=== PATIENT | female | born 1945 | race Caucasian/White ===

== ENCOUNTER 2017-05-16 21:16 | Observation (INO) | payer OTHER ==
[~2017-05-16] VITALS: Ht 162.6 cm; Wt 63.5 kg
--- NOTE | ~2017-05-16 | CN ---
Consultation Report [facility] [address] [place]. [address] NAME: THAO MOSHER : 49 STATUS : ADM Matthew PAT#: [id number] AGE: 71 ADM/REG DATE : 05/16/17 MR#: [id number] REPORT SERV DATE: 05/17/17 DICTATED BY: DIO MORROW DATE: 05/17/17 REPORT STATUS : Draft TRANSCRIBED BY: MODL DATE: 05/17/17 DATE OF CONSULTATION: 05/17/2017 CHIEF COMPLAINT: Shortness of breath in a patient with end-stage COPD. HISTORY OF PRESENT ILLNESS: Ms. Thao Mosher is a 71-year-old white female with a past medical history significant for very severe COPD with chronic hypoxemic respiratory failure, chronic hypercapnic respiratory failure with numerous recent presentations for exacerbations of her COPD, who presents to [facility]'s emergency room with complaints of difficulty breathing. It should be noted that Ms. Mosher was hospitalized three times already this year for exacerbations of COPD. Ms. Mosher required supplemental oxygen at 6 L continuous. She is on a pulmonary regimen of albuterol, Symbicort, and Spiriva. She is currently completing a prolonged prednisone taper. The patient is currently chewing tobacco. That being said, previous to this time, she smoked approximately two packs a day for a period of 30 years. She largely denies symptomatology related to obstructive sleep apnea. She describes her exercise tolerance as essentially nonexistent, stating that any movement causes her to be very short of breath. Again, Ms. Mosher has had three hospitalizations for her severe end-stage COPD already this year and most recently was about a week ago at our [facility] facility. She was seen by Dr. Campos during this time. She has been seen by Dr. Rachelle Maravilla in the past. That being said, she has not had an opportunity to establish care in the outpatient clinic. She did eventually improve and was discharged from the [facility] with the initial idea to pursue some sort of rehab. That being said, given her poor exercise tolerance, the patient felt that she would be unable to participate in any rehab whatsoever, and as such, transitioned home. There, she has had a declining course with worsening shortness of breath. This became progressively worse and culminated in her presentation to [facility]'s emergency room. Upon arrival, she was normotensive and afebrile. Initial blood work revealed white blood cell count of 11,700 in the setting of continuing steroids. Her renal function was intact. She did undergo arterial blood gas sampling, which demonstrated pH of 7.43, PaCO2 of 48, PaO2 of 61, and a bicarb of 30.9. She was admitted and given steroids and breathing treatments. There was a discussion about having palliative care comes to see her while she was inpatient. Ultimately, the patient has requested to transition home with hospice care. As she has chronic hypoxemic-hypercapnic respiratory failure and seemingly breathes much better with respiratory support at hour of sleep, Pulmonary has been consulted for assistance in providing her with noninvasive positive pressure ventilation at hour of sleep. Currently, Ms. Mosher does demonstrate labored breathing. She does have significant dyspnea even at rest. She is not producing any purulent sputum today. She does have some complaints of wheezing. The patient does have documented pulmonary function testing that suggests very severe COPD. Consultation Report [address] [address] NAME: THAO MOSHER : 49 STATUS : ADM Matthew PAT#: [id number] AGE: 71 ADM/REG DATE : 05/16/17 MR#: [id number] REPORT SERV DATE: 05/17/17 DICTATED BY: DIO MORROW DATE: 05/17/17 REPORT STATUS : Draft TRANSCRIBED BY: DOYLE DATE: 05/17/17 She currently denies any murmurs, angina, or palpitations. In regard to constitutional symptoms, she currently denies fever, chills, nausea, vomiting, chest pain, or abdominal pain. PAST MEDICAL HISTORY: 1. Severe end-stage COPD. 2. Chronic hypoxemic respiratory failure. 3. Chronic hypercapnic respiratory failure. 4. Hypertension. 5. Dyslipidemia. 6. Anxiety and depression. PAST SURGICAL HISTORY: The patient had a hysterectomy. FAMILY HISTORY: The patient denies family history of lung disease. SOCIAL HISTORY: The patient has a daughter, who is involved in her healthcare. She currently resides at home prior to this hospitalization. TOBACCO/ALCOHOL: The patient has smoked at least two packs a day for at least 30 years. She is currently chewing tobacco. She denies any recent alcohol or illicit drug use. MEDICATIONS: 1. Albuterol. 2. Symbicort. 3. Citalopram 20 mg. 4. Lorazepam 0.5 mg. 5. Pantoprazole 40 mg. 6. Rosuvastatin 10 mg. 7. Spiriva. ALLERGIES: THE PATIENT HAS ADVERSE REACTION TO CODEINE. REVIEW OF SYSTEMS: Complete review of systems was performed with pertinent positives and negatives contained within the body of the HPI. PHYSICAL EXAMINATION: VITAL SIGNS: Blood pressure is 141/69, heart rate is 110, T-max is 98.7, respiratory rate is 22, SpO2 is 93% on 6 L. GENERAL: Ms. Thao Mosher is a chronically ill-appearing 71-year-old white female, who is using her accessory muscles of breathing. She is in no acute distress, however. SKIN: Skin with appropriate texture and turgor. HEENT: Head, skull is normocephalic and atraumatic. Eyes, sclerae are anicteric. Ears, Consultation Report [address] [address] NAME: THAO MOSHER : 49 STATUS : ADM Matthew PAT#: [id number] AGE: 71 ADM/REG DATE : 05/16/17 MR#: [id number] REPORT SERV DATE: 05/17/17 DICTATED BY: DIO MORROW DATE: 05/17/17 REPORT STATUS : Draft TRANSCRIBED BY: DOYLE DATE: 05/17/17 auricles and tragus are without pain to palpation. Nose, bilateral nasal patency. Throat, dentition noted. NECK: Supple. Trachea midline. THORAX/LUNGS: Very diminished breath sounds through entire lung montiel. CARDIOVASCULAR: Regular rate and rhythm. No murmurs, rubs, or gallops. ABDOMEN: Soft, nondistended, and nontender. PERIPHERAL VASCULAR: No edema. MUSCULOSKELETAL: Full AROM and PROM in all joints. NEUROLOGIC: Cranial nerves 2 through 12 are grossly intact. PSYCHIATRIC: The patient is alert and oriented x3. ACCESSORY DATA: Reveals glucose elevated to 144, white blood cell count is 10,100, hemoglobin and hematocrit are 11.5 and 36.0. Chest x-ray reveals no acute infiltrate. IMPRESSION: 1. Acute on chronic hypoxemic-hypercapnic respiratory failure. 2. Severe end-stage chronic obstructive pulmonary disease. 3. Hypertension. PLAN: 1. At this time, the patient is currently considering transitioning to hospice care. Whether or not she chooses to pursue hospice care, she is certainly a candidate for noninvasive positive pressure ventilation at hour of sleep. This will certainly benefit her work of breathing, quality of life, and the risks of re-hospitalizations should she choose not to pursue hospice care. She does have previous ABGs that demonstrate significant hypercapnia. We will over review previous overnight pulse oximetry to elucidate signs consistent with obstructive sleep apnea. We will also partner with case management in an attempt to provide her this much-needed therapy for the patient. 2. In regard to the patient's severe end-stage COPD, she is on appropriate medications. We will attempt to adjust them moving forward in an attempt to optimize her pulmonary function. The aforementioned impression and plan have been discussed with Dr. Padgett who will follow further recommendations. We thank you for this consult and look forward to participating in the care of Ms. Thao Mosher. SB/BOBL Dio Morrow PA-C Consultation Report [address] [address] NAME: THAO MOSHER : 49 STATUS : ADM Matthew PAT#: [id number] AGE: 71 ADM/REG DATE : 05/16/17 MR#: [id number] REPORT SERV DATE: 05/17/17 DICTATED BY: DIO MORROW DATE: 05/17/17 REPORT STATUS : Draft TRANSCRIBED BY: BOBL DATE: 05/17/17 / [id number] CC: Sandra Javier M.D.
--- NOTE | ~2017-05-16 | HP ---
History And Physical [address] [place]. [address] NAME: THAO MOSHER : 49 STATUS : ADM Matthew PAT#: [id number] AGE: 71 ADM/REG DATE : 05/16/17 MR#: [id number] REPORT SERV DATE: 05/17/17 DICTATED BY: ARPITA KEE DATE: 05/17/17 REPORT STATUS : Draft TRANSCRIBED BY: MODL DATE: 05/17/17 DATE OF ADMISSION: 05/17/2017 CHIEF COMPLAINT: Respiratory complaint and shortness of breath. HISTORY OF PRESENT ILLNESS: The patient is a 71-year-old female with past medical history of end-stage COPD with multiple admissions for similar, recently discharged from [facility], was at [facility] for approximately 48 hours, who presents after having worsening shortness of breath last night, generalized moderate severity. The patient reports that symptoms began after they decreased her oxygen from 6 L to 4 L, she has been on 6 L for many years. She denies any pain. Still using smokeless tobacco. No fevers, wheezing, or cough, but does have shortness of breath, slightly improved with breathing treatments and antianxiety medications. Symptoms are worse with anxiety, relieved by oxygen and antianxiety medications. Still currently present. REVIEW OF SYSTEMS: Additional 10-point review of systems negative except for that noted in HPI. GENERAL: No fevers or chills. EYES: No eye pain or visual changes. ENT: No congestion or sinus drainage. NEURO: No headache or confusion. SKIN: Does have occasional bruising, but no rashes. RESPIRATORY: Does have shortness of breath. No cough. Does have dyspnea on exertion. CV: No chest pain or palpitations. GI: No nausea or vomiting. : No dysuria, hematuria. MUSCULOSKELETAL: No myalgias or arthralgias above her baseline. ENDO: Does have chronic fatigue. HEME: No bleeding or bruising acutely, but did have bruising from recent hospital stay. PSYCH: Does have anxiety. No confusion. PAST MEDICAL HISTORY: Severe COPD, 6 L. Hyperglycemia, last A1c in 01.08. Generalized anxiety. SURGICAL HISTORY: Hysterectomy and cataracts. FAMILY HISTORY: Hypertension. ALLERGIES: CODEINE. SOCIAL HISTORY: Quit smoking years ago. Still uses smokeless tobacco. No alcohol or illicits. EK, sinus tachycardia. MOST RECENT DISCHARGE MEDICATIONS: Celexa, fluconazole, Flonase, sliding scale insulin level History And Physical [address] [address] NAME: THAO MOSHER : 49 STATUS : ADM Matthew PAT#: [id number] AGE: 71 ADM/REG DATE : 05/16/17 MR#: [id number] REPORT SERV DATE: 05/17/17 DICTATED BY: ARPITA KEE DATE: 05/17/17 REPORT STATUS : Draft TRANSCRIBED BY: DOYLE DATE: 05/17/17 1, Protonix, MDI, albuterol, Symbicort, Tylenol, Mylanta, Colace, Humibid, Ativan, melatonin, Senokot, nasal spray, Crestor, prednisone taper. PHYSICAL EXAMINATION: VITAL SIGNS: The patient's blood pressure 139/64, temperature 98.7, pulse 137, respirations 20, O2 saturations 100%. GENERAL: Currently in no acute distress. Elderly, frail. EYES: No scleral icterus. EOMI. ENT: Has snuff in mouth. Poor dentition. Moist mucous membranes. CHEST: Chest wall, increased AP diameter. Bilateral wheeze. Decreased air flow in lower lung montiel. CV: Mild tachycardia, but no rubs or gallops. GI: Soft, nontender, nondistended. : Deferred. MUSCULOSKELETAL: Moves all extremities x4. SKIN: Bruising sites from recent hospital stay and recent falls at home, not healing. HEME: No bleeding. NEURO: Alert and oriented. Moves all extremities, but weak, unable to do ambulation secondary to respiratory status. PSYCH: Calm, pleasant. Flu screen negative. CMP, sodium 137, potassium 4.1, chloride 96, bicarb 35, BUN and creatinine 22 and 0.76, glucose 162. LFTs within normal limits. CBC, WBC count 11.7, H and H 11 and 34.4, platelets 215. ABG; pH 7.43, pCO2 of 48, PO2 of 61, bicarb 30.9. ASSESSMENT AND PLAN: 1. End-stage chronic obstructive pulmonary disease. 2. Hypoxia. 3. Tobacco use. 4. Depression and anxiety. 5. Hypertension. PLAN: 1. For end-stage COPD, O2, DuoNebs, questionable trilogy. We will ask for additional pulmonary records. Unable to get BiPAP as previously at home, but did have improvement in quality of life. Additionally, we will consult hospice as per discussed with ED and the patient's family. 2. Hypoxia, chronic O2 dependent. Steroids, O2, and treat above as best tolerated. 3. Tobacco use. Still using smokeless tobacco. Nicotine patch. Counseled, but not interested in cessation at this time. 4. Depression and anxiety. Benzos have worked well for this patient, which worsened end- stage COPD exacerbated by hypoxia. 5. Hypertension. P.r.n.'s. DISPOSITION: Pulmonary evaluation and hospice possible evaluation, possibly focus on comfort quality. History And Physical [address] [place]. [address] NAME: THAO MOSHER : 49 STATUS : ADM Matthew PAT#: [id number] AGE: 71 ADM/REG DATE : 05/16/17 MR#: [id number] REPORT SERV DATE: 05/17/17 DICTATED BY: ARPITA KEE DATE: 05/17/17 REPORT STATUS : Draft TRANSCRIBED BY: MODL DATE: 05/17/17 DDN/BOBL Arpita Kee MD / [id number] CC: MD Cailin Rusesll M.D.
--- NOTE | ~2017-05-16 | DS ---
Discharge Summary [facility] [address] [place]. [address] NAME: THAO MOSHER : 49 STATUS : DIS Matthew PAT#: [id number] AGE: 71 ADM/REG DATE : 05/16/17 MR#: [id number] REPORT SERV DATE: 05/17/17 DICTATED BY: CONG ARRIOLA DATE: 05/17/17 REPORT STATUS : Draft TRANSCRIBED BY: MODAmbrose DATE: 05/17/17 ADMISSION DATE: 05/16/2017 DISCHARGE DATE: 05/17/2017 DIAGNOSES: 1. End-stage chronic obstructive pulmonary disease. 2. Chronic hypoxic respiratory failure. 3. History of tobacco abuse. 4. Hyperlipidemia. 5. Debility. CONSULTANTS: 1. [facility]monary [facility]. 2. [facility]. HOSPITAL COURSE: Please see H and P dictated by Dr. Juvenal Shirley. This is a 71-year-old female with a past medical history of severe COPD with recent discharge from [facility] to a [facility] facility. However, the patient was readmitted to [facility] after several hours of care at [facility] for worsening shortness of breath. According to the patient, she states that she felt better on BiPAP and felt as though she had a better quality of life while on BiPAP, and per discussion with the patient with admitting physician and the ER physician, the patient's decision was for hospice consultation. Hospice was consulted, and with discussion with hospice, the patient was transferred over to hospice care with her permission. Also, the patient was seen by Pulmonary for BiPAP settings. After her visit with hospice, the patient was transitioned over to hospice care for her decision. DANA/DOYLE Cong Arriola M.D. / [id number] CC: Sandra Javier M.D.
[~2017-05-16 21:16] MED LIST: ADVIL PO; ALBUTEROL0.083 % INH; ALBUTEROL5 INH; ALDROXICON PO; AMB10 PO; ATV.5 PO; CELEXA20 PO; CLARIT10 PO; CRESTOR10 PO; DILT-XR120 MG PO; DSS PO; FLONASE NAS; FLUCON1 PO; GLUCPH PO; HUMIBID1200 MG PO; KDUR20 PO; KLOR-CON 1010 MEQ PO; KLOR-CON M2020 MEQ PO; L20 PO; LEVAQUIN5T PO; LOP25 PO; LOPID6 PO; MEDROLPAK4 PO; MELA3 PO; MUCINEX600 MG PO; OCEAN NAS; P10 PO; PRINZIDE1 TA1 PO; PROAIR HFA INH; PROTONIX PO; PROVENTSOL INH; REQUIP5 PO; ROZEREM8 MG PO; SPIRIVA INH; STERAPRED DS10 MG; SYMBICORT 160/41 INH INH; T PO; ULTRAM50 PO; ZANTAC 150 PO; ZESTORETIC PO; ZITH250 PO; ZITHROMAX500 MG PO
[2017-05-16 22:16] LABS: ALLENS TEST Pos; BE (BASE EXCESS) 5.6 MEQ/L (0 +/- 2.5); CARBOXYHEMOGLOBIN 1.5 % (0-3); DEVICE NC; HCO3 (ACTUAL BICARBONATE) 30.9 MEQ/L (23-27); HEMOBLOGIN CONTENT 11.8 G/DL (12-16); INSTRUMENT SERIAL # 8087; METHEMOGLOBIN 0.3 % (0-3); O2 CONTENT 14.9 VOL% (18-24); OPERATOR ID 17589; PCO2 (CO2 TENSION) 48 MMHG (35-45); PO2 (O2 TENSION) 61 MMHG (79-93); SAMPLE Arterial; pH 7.43 (7.37-7.43)
[2017-05-16 22:48] LABS: BASOPHILS 0 %; EOSINOPHILS 0 %; ER CBC TAT 0 Hrs 09 Mins; HEMATOCRIT 34.4 % (36.0-48.0); IMMATURE GRANULOCYTES 0.7 %; IMMATURE GRANULOCYTES ABSOLUTE 0.08 10/3/uL (0.0-0.11); LYMPHOCYTES 2.9 %; LYMPHOCYTES ABSOLUTE 0.34 10/3/uL (0.67-4.30); MEAN CORPUSCULAR HEMOGLOB 30.2 pg (26.0-34.0); MEAN CORPUSCULAR VOLUME 94.5 fL (80-100); MEAN PLATELET VOLUME 9.5 fL (9.2-13.0); MONOCYTES 2.8 %; MONOCYTES ABSOLUTE 0.33 10/3/uL (0.21-1.20); NEUTROPHILS 93.6 %; NEUTROPHILS ABSOLUTE 10.95 10/3/uL (2.02-8.40); PLATELET COUNT 215 10/3/uL (150-400); RBC DISTRIBUTION WIDTH 14.3 % (12.0-16.0); RED CELL COUNT 3.64 10/6/uL (4.0-5.6); WHITE BLOOD CELLS 11.7 10/3/uL (4.5-10.5)
[2017-05-16 22:51] LABS: MANUAL DIFF NO %
[2017-05-16 23:02] LABS: A/G RATIO 0.8 (0.7-1.9); ALBUMIN 2.8 G/DL (3.5-5.0); ALKALINE PHOSPHATASE 66 U/L (45-117); BUN (BLOOD UREA NITROGEN) 22 MG/DL (6-23); CALCIUM, SERUM 8.5 MG/DL (8.5-10.4); CHLORIDE, SERUM 96 MMOL/L (96-112); CO2 (CARBON DIOXIDE) 35 MMOL/L (24-34); CREATININE 0.76 MG/DL (0.55-1.02); GFR AFRICAN AMERICAN 93 ML/MIN (>=60); GFR NON AFRICAN AMERICAN 80 ML/MIN (>=60); GLOBULIN 3.4 G/DL (2.5-4.1); POTASSIUM, SERUM 4.1 MMOL/L (3.5-5.3); SGOT(AST) 25 U/L (5-40); SGPT(ALT) 27 U/L (5-65); SODIUM, SERUM 137 MMOL/L (135-148); TOTAL PROTEIN 6.2 G/DL (6.0-8.5)
[2017-05-16 23:09] LABS: GLUCOSE, SERUM 162 MG/DL (60-99)
[2017-05-16 23:18] LABS: INFLUENZA A SCREEN NEGATIVE (NEGATIVE); INFLUENZA B SCREEN NEGATIVE (NEGATIVE)
[2017-05-17] MEDS ORDERED: INSNOVR (01:03)
[2017-05-17] MEDS ORDERED: ATV1 PO (01:04)
[2017-05-17] MEDS ORDERED: ALBUTEROL0.083 % INH (01:05)
[2017-05-17] MEDS ORDERED: MELA3 PO (01:06)
[2017-05-17] MEDS ORDERED: P10 PO (01:06)
[2017-05-17] MEDS ORDERED: PROTONIX PO (01:07)
[2017-05-17] MEDS ORDERED: FLONASE NAS (01:08)
[2017-05-17] MEDS ORDERED: SYMBICORT 160/41 INH INH (01:09)
[2017-05-17] MEDS ORDERED: SPIRIVA INH (01:12)
[2017-05-17] MEDS ORDERED: CRESTOR10 PO (01:12)
[2017-05-17] MEDS ORDERED: SENTAB PO (01:13)
[2017-05-17] MEDS ORDERED: CELEXA20 PO (01:13)
[2017-05-17] MEDS ORDERED: PROAIR HFA INH (01:13)
[2017-05-17 06:17] LABS: BASOPHILS 0 %; EOSINOPHILS 0 %; HEMOGLOBIN 11.5 g/dL (12.0-16.0); IMMATURE GRANULOCYTES 0.6 %; IMMATURE GRANULOCYTES ABSOLUTE 0.06 10/3/uL (0.0-0.11); LYMPHOCYTES 1.2 %; LYMPHOCYTES ABSOLUTE 0.12 10/3/uL (0.67-4.30); MEAN CORPUS HGB CONC 31.9 g/dL (32.0-36.0); MEAN CORPUSCULAR HEMOGLOB 29.7 pg (26.0-34.0); MEAN PLATELET VOLUME 9.6 fL (9.2-13.0); MONOCYTES 0.5 %; MONOCYTES ABSOLUTE 0.05 10/3/uL (0.21-1.20); NEUTROPHILS 97.7 %; PLATELET COUNT 220 10/3/uL (150-400); RBC DISTRIBUTION WIDTH 14.4 % (12.0-16.0); RED CELL COUNT 3.87 10/6/uL (4.0-5.6); WHITE BLOOD CELLS 10.1 10/3/uL (4.5-10.5)
[2017-05-17 06:19] LABS: MANUAL DIFF NO %
[2017-05-17 06:28] LABS: BUN (BLOOD UREA NITROGEN) 21 MG/DL (6-23); CALCIUM, SERUM 9.2 MG/DL (8.5-10.4); CHLORIDE, SERUM 96 MMOL/L (96-112); CO2 (CARBON DIOXIDE) 33 MMOL/L (24-34); CREATININE 0.78 MG/DL (0.55-1.02); GFR AFRICAN AMERICAN 90 ML/MIN (>=60); GFR NON AFRICAN AMERICAN 78 ML/MIN (>=60); GLUCOSE, SERUM 144 MG/DL (60-99); POTASSIUM, SERUM 4.2 MMOL/L (3.5-5.3); SODIUM, SERUM 137 MMOL/L (135-148)
[2017-05-17 14:55] LABS: ASCORBIC ACID (UR NOT ORDER) NEG (NEG); BILIRUBIN, URINE NEGATIVE (NEG); KETONE, URINE 20 MG/DL (NEG); LEUKOCYTE ESTERASE(NOT OR SMALL (NEG); WBC (NOT ORDERED) (RFLEX) 27 (0-5)
== END 2017-05-17 17:05 ==
LOC: ER 21:16 → CDU1 22:57 → 1SO 22:57 → ER 05-17 01:24 → CDU1 05-17 01:24 → 1SO 05-17 01:43
PROVIDERS: Hospitalist; Internal Medicine; Student in an Organized Health Care Education/Training Program
DX: J44.9 Chronic obstructive pulmonary disease, unspecified (principal); J96.11 Chronic respiratory failure with hypoxia; F32.9 Major depressive disorder, single episode, unspecified; F41.9 Anxiety disorder, unspecified; E78.5 Hyperlipidemia, unspecified; I10 Essential (primary) hypertension; Z90.710 Acquired absence of both cervix and uterus; Z88.5 Allergy status to narcotic agent; Z87.891 Personal history of nicotine dependence
CPT/HCPCS: 36600; 71010; 80048; 80053; 81001; 82805; 83735; 85025; 87040; 87070; 87077; 87086; 87186; 87205; 87804; 93005; 94640; 96372; 96374; 96375; 96376; 99285; A9270-GY; G0378; J2930